=== PATIENT | female | born 1980 | race Caucasian/White ===

== ENCOUNTER → 2016-04-01 | Outpatient (CLI) | payer MEDICAID ==
--- NOTE | 2016-04-01 17:54 | DX ---
PELVIS, SINGLE VIEW INDICATION: Fell onto the sacrum. FINDINGS: The hips are normal. No femoral fractures. The sacrum is grossly normal. SI joints are symm etric. Multiple surgical teressa are seen, possibly from a previous hernia repair. IMPRESSION: Nothing acute on this single view pelvis.
--- NOTE | 2016-04-01 17:55 | DX ---
SACRUM AND COCCYX, THREE VIEWS INDICATION: Fell on ice. FINDINGS: The sacral ala are symmetric bilaterally. No fracture. Visualized L4 and L5 are normal on t he sagittal view as well. SI joints are symmetric. The rest of the pelvis is normal. IMPRESSION: No fracture.
== END ==
LOC: FIMAGING 16:19
PROVIDERS: ATTEND Nurse Practitioner Family
DX: M25.552 Pain in left hip (principal); M53.3 Sacrococcygeal disorders, not elsewhere classified

== ENCOUNTER 2017-04-23 17:00 | Emergency (ER) | payer MEDICAID ==
[2017-04-23] MEDS ORDERED: PROMETHAZINE HCL 25 MG/ML INJ IVP ONE (18:42)
[2017-04-23] MEDS ORDERED: LORazepam 2 MG/ML INJ IVP ONE (18:42)
[2017-04-23] MEDS ORDERED: KETOROLAC 15 MG/1 ML SDV IVP ONE ×2 (18:42→20:34)
[2017-04-23] MEDS ORDERED: NS 1,000 ML IV ONE (18:43)
[2017-04-23] MEDS ORDERED: HALOPERIDOL LACT 5 MG/ML INJ IVP ONE (20:34)
[2017-04-23 21:18] VITALS: PULSE 86
--- NOTE | 2017-04-23 21:59 | EDPHY ---
H & P Stated Complaint: "migraine i cant get under control" h/a nausea x 2 days, no trauma Time Seen by Provider: 04/23/17 18:34 HPI/ROS: Chief complaint: Migraine headache History of present illness: This is a 37-year-old female who presents to the emergency department reporting a migraine headache. She has a history of migraine headaches and this feels similar. She states symptoms began yesterday in a typical fashion. She reports throbbing on the right side of her head. Associated photophobia. She initially treated conservatively with OTC medications but symptoms progressed. She took a dose of Imitrex but the symptoms persisted. She took a 2nd dose this morning. She is unable to control it. Again she has a long history of migraines. This is typical in nature. She states there is nothing new or different today as compared to previous episodes. It was not thunderclap in nature. It is not the worst headache of her life. She denies other associated signs or symptoms including no fevers or cold symptoms, no paresthesias, no weakness or paralysis, no bowel or bladder dysfunction, no history of trauma. She states she is not , she had a test this week at her doctor's office which was negative. Review of systems: A 10 point review of systems was obtained and other than described above was negative - Personal History LMP (Females 10-55): Unknown Current Tetanus/Diphtheria Vaccine: Unsure Current Tetanus Diphtheria and Acellular Pertussis (TDAP): Unsure - Medical/Surgical History Hx Asthma: No Hx Chronic Respiratory Disease: No Hx Diabetes: No Hx Cardiac Disease: No Hx Renal Disease: No Hx Cirrhosis: No Hx Alcoholism: No Hx HIV/AIDS: No Hx Splenectomy or Spleen Trauma: No Other PMH: chrohns Dx,ibs. Migraines. small bowel resection x4. Tonsilectomy. GallBladder. Appendectomy - Social History Smoking Status: Never smoked - Physical Exam Exam: General Appearance: Alert, nontoxic. Eyes: Pupils equal and round no pallor or injection. ENT, Mouth: Mucous membranes moist. Respiratory: There are no retractions, lungs are clear to auscultation. Cardiovascular: Regular rate and rhythm. Gastrointestinal: Abdomen is soft and non tender, no masses, bowel sounds normal. Neurological: Alert and oriented x4. Cranial nerves 2-12 grossly intact. Strength and sensation intact and symmetrical. No meningismus. She is ambulating well. Skin: Warm and dry, no rashes. Musculoskeletal: Neck is supple non tender. Extremities are symmetrical, full range of motion. Psychiatric: Patient is oriented X 3, there is no agitation. Constitutional: Initial Vital Signs Temperature (C) 37.0 C 04/23/17 17:06 Heart Rate 88 04/23/17 17:06 Respiratory Rate 18 04/23/17 17:06 Blood Pressure 121/87 H 04/23/17 17:06 O2 Sat (%) 97 04/23/17 17:06 O2 Delivery Mode Room Air Allergies/Adverse Reactions: metoclopramide HCl [From Reglan] Allergy (Severe, Verified 06/29/14 21:42) hydromorphone HCl [From Dilaudid] Allergy (Unknown, Verified 06/29/14 21:42) metronidazole [From Flagyl] Allergy (Unknown, Verified 06/29/14 21:42) Metronidazole HCl [From Flagyl] Allergy (Unknown, Verified 06/29/14 21:42) REMICAID Allergy (Unknown, Uncoded 06/29/14 21:42) Home Medications: Medication Instructions Recorded Bentyl 20 MG (RX) 03/16/13 Cyclobenzaprine [Flexeril 10 MG 06/29/14 (RX)] Multiple Vitamin 06/29/14 Nortriptyline HCl 06/29/14 Oxcarbazepine [Trileptal] 06/29/14 traZODONE 50MG (RX) 06/29/14 IMITREX 04/23/17 Imuran 50 mg (*) 04/23/17 Pentasa 250 mg (*) 04/23/17 Medical Decision Making ED Course/Re-evaluation: Patient seen under the supervision of my secondary supervising physician Dr. Delvis Crowell. Patient presents to the emergency department for a migraine headache. She has a history of migraine headaches. This is typical in nature. It was not thunderclap. It is not the worst headache of her life. She has a nonfocal neurologic exam. I do not appreciate red flag risk factors to suggest need for further evaluation. She is symptomatically treated with medications that she has used previously when she has been unable to control her headaches. Her headache has resolved. She is requesting to be discharged home. Home care is discussed. She is to follow up with her primary care doctor for recheck. Return precautions are given. Patient voiced understanding and agreement with plan. Differential Diagnosis: Included but not limited to minor headache, status migrainous, tension headache , cluster headache, unlikely intracranial bleed or mass - Data Points Medications Given: Discontinued Medications Diphenhydramine HCl (Benadryl Injection) 25 mg IVP EDNOW ONE Stop: 04/23/17 18:43 Last Admin: 04/23/17 19:20 Dose: 25 mg Diphenhydramine HCl (Benadryl Injection) 25 mg IVP EDNOW ONE Stop: 04/23/17 21:34 Last Admin: 04/23/17 21:35 Dose: 25 mg Haloperidol Lactate (Haldol Injection) 5 mg IVP EDNOW ONE Stop: 04/23/17 20:35 Last Admin: 04/23/17 21:15 Dose: 5 mg Sodium Chloride (Ns) 1,000 mls @ 0 mls/hr IV EDNOW ONE; Wide Open PRN Reason: Protocol Stop: 04/23/17 18:44 Last Admin: 04/23/17 19:23 Dose: 1,000 mls Ketorolac Tromethamine (Toradol) 15 mg IVP EDNOW ONE Stop: 04/23/17 18:43 Last Admin: 04/23/17 19:21 Dose: 15 mg Ketorolac Tromethamine (Toradol) 15 mg IVP EDNOW ONE Stop: 04/23/17 20:35 Last Admin: 04/23/17 21:15 Dose: 15 mg Lorazepam (Ativan Injection) 1 mg IVP EDNOW ONE Stop: 04/23/17 18:43 Last Admin: 04/23/17 19:22 Dose: 1 mg Promethazine HCl (Phenergan) 25 mg IVP EDNOW ONE Stop: 04/23/17 18:43 Last Admin: 04/23/17 19:23 Dose: 25 mg Departure - Departure Disposition: Home, Routine, Self-Care Clinical Impression: Headache Qualifiers: Headache type: unspecified Headache chronicity pattern: acute headache Intractability: not intractable Qualified Code(s): R51 - Headache Condition: Good Instructions: Acute Headache (ED) Additional Instructions: Follow-up with a primary care doctor this week for recheck If symptoms worsen or new symptoms develop return to the emergency room for recheck Referrals: NONE *PRIMARY CARE P,. [Primary Care Provider] - As per Instructions [facility],. [Clinic] - As per Instructions
[2017-04-23 22:15] VITALS: BP 109/73; RESP 18; TEMP 98.1; O2SAT 96
== END 2017-04-23 22:14 | disposition home or self-care (01) ==
DX: R51 Headache (principal); E86.9 Volume depletion, unspecified
CPT/HCPCS: 96374; J1200; J1630; J1885; J2060; J2550

== ENCOUNTER → 2017-09-18 | Outpatient (CLI) | payer OTHER | LOC: CLAB 10:44 | PROVIDERS: ATTEND Family Medicine | DX: M20.12 Hallux valgus (acquired), left foot (principal); Z98.890 Other specified postprocedural states | CPT/HCPCS: 73630-PO ==

== ENCOUNTER → 2018-07-25 | Outpatient (CLI) | payer OTHER | LOC: CIMAGING 10:12 | PROVIDERS: ATTEND Family Medicine | DX: N92.1 Excessive and frequent menstruation with irregular cycle (principal); R10.2 Pelvic and perineal pain | CPT/HCPCS: 76856-PO ==